=== PATIENT | female | born 1990 | race American Indian/Alaskan Native ===

== ENCOUNTER 2019-09-30 22:48 | Emergency (ER) | payer SELFPAY ==
--- NOTE | 2019-09-30 23:07 | Emergency Department Report ---
ED General Adult HPI - General Chief complaint: Seizure Stated complaint: SEIZURE Time Seen by Provider: 09/30/19 22:57 Source: patient, EMS ( EMS documentation not available at time of chart dictation ), RN notes reviewed, old records reviewed Mode of arrival: Stretcher Limitations: Altered Mental Status, Other (Patient is a poor historian) - History of Present Illness Initial comments: The patient is a 29-year-old female. She is not known to myself previously. During the entire history and physical examination, I am chaperoned by nurse Jean Claude Hedrick Apparently, emergency medical services were contacted because the patient had convulsive activity. As per collateral information relayed to nursing team caring for the patient, patient had been consuming alcohol, marijuana, and possibly tea. The patient does not have any recollection of the event. She complains of nonspecific central chest tightness, present for days, which does not radiate to the back, arms or neck. She denies , oral contraceptive use, and DVT, pulmonary embolism risk factors. She denies physical pain at this time. She is not homicidal or suicidal. She is still somewhat confused, not quite sure where she is. At the moment, the patient is not accompanied by friends or family at this time for additional information or collateral information. Patient therefore not able to describe the qualitative nature of her symptoms, exacerbating or relieving factors. -: This evening Radiation: other Quality: other Consistency: other Improves with: other Worsens with: other Associated Symptoms: other - Related Data Allergies Allergy/AdvReac Type Severity Reaction Status Date / Time cucumber Allergy Unknown Verified 09/30/19 23:24 mushroom Allergy Unknown Verified 09/30/19 23:24 tomato Allergy Unknown Verified 09/30/19 23:24 ED Review of Systems ROS: Stated complaint: SEIZURE Other details as noted in HPI Comment: Unobtainable due to pts medical conditions Constitutional: see HPI Eyes: as per HPI ENT: as per HPI Respiratory: see HPI Cardiovascular: as per HPI Endocrine: see HPI Gastrointestinal: as per HPI Genitourinary: as per HPI Musculoskeletal: as per HPI Skin: as per HPI Neurological: as per HPI, confusion Psychiatric: as per HPI Hematological/Lymphatic: as per HPI ED Past Medical Hx - Past Medical History Previous Medical History?: No - Surgical History Past Surgical History?: No - Social History Smoking Status: Never Smoker ED Physical Exam - General Limitations: Other (Confusion) General appearance: appears intoxicated, anxious, obese - Head Head exam: Present: atraumatic, normocephalic - Eye Eye exam: Present: normal appearance, EOMI, other (Visual acuity intact to finger counting, color perception, reading at a close distance). Absent: nystagmus - ENT ENT exam: Present: normal exam, normal orophraynx, mucous membranes moist, normal external ear exam - Neck Neck exam: Present: normal inspection, full ROM. Absent: tenderness, meningismus - Respiratory Respiratory exam: Present: normal lung sounds bilaterally. Absent: respiratory distress - Cardiovascular Cardiovascular Exam: Present: regular rate, normal rhythm, normal heart sounds. Absent: bradycardia, tachycardia, irregular rhythm, systolic murmur, diastolic murmur, rubs, gallop - GI/Abdominal GI/Abdominal exam: Present: soft, normal bowel sounds. Absent: distended, tenderness, guarding, rebound, rigid, pulsatile mass - Extremities Exam Extremities exam: Present: normal inspection, full ROM, other (2+ pulses noted in the bilateral upper and lower extremities. There is no palpable cord. negative Homans sign. Muscular compartments are soft. The pelvis is stable.). Absent: pedal edema, calf tenderness - Back Exam Back exam: Present: normal inspection, full ROM. Absent: tenderness, CVA tenderness (R), CVA tenderness (L), paraspinal tenderness, vertebral tenderness - Neurological Exam Neurological exam: Present: altered (Patient is awake to name, and follows commands. Does not know where she is.), other (No facial droop. Tongue midline. Extraocular movements intact bilaterally. Facial sensation intact to light touch in V1, V2, V3 distribution bilaterally. 5 and a 5 strength in 4 extremities. Sensation intact to light touch in 4 extremities.) - Psychiatric Psychiatric exam: Present: anxious - Skin Skin exam: Present: warm, dry, intact, normal color. Absent: rash ED Course Vital Signs 09/30/19 09/30/19 09/30/19 22:50 22:52 23:00 Temperature 98 F Pulse Rate 95 H 102 H Respiratory 10 L 15 Rate Blood Pressure 109/64 Blood Pressure 108/71 [left arm] O2 Sat by Pulse 97 99 99 Oximetry 09/30/19 09/30/19 10/01/19 23:05 23:32 00:00 Temperature Pulse Rate 93 H 84 86 Respiratory 19 11 L Rate Blood Pressure 108/71 119/69 Blood Pressure [left arm] O2 Sat by Pulse 99 100 Oximetry 10/01/19 10/01/19 00:11 01:01 Temperature Pulse Rate 81 Respiratory 19 Rate Blood Pressure 119/69 107/58 Blood Pressure [left arm] O2 Sat by Pulse 100 100 Oximetry - Reevaluation(s) Reevaluation #1: 10/01/19 00:42 Patient sleeping comfortably at this time, and in no acute distress. CT scan of the brain, x-ray of the chest is negative for acute disease. Patient will be observed in this department, pending clinical sobriety, or when a sober adult is able to come by and pick the patient up. Reevaluation #2: 10/01/19 01:52 Patient observed for 3 hours without clinical decompensation or recurrent seizure. As she still appears to be somewhat impaired. Nursing team to reach out to the patient's friend, Ms Whipple, to come by and pickler helper patient ED Medical Decision Making - Lab Data Result diagrams: 09/30/19 23:09 09/30/19 23:09 Vital Signs 09/30/19 09/30/19 22:52 23:05 Temperature 98 F Pulse Rate 95 H 93 H Respiratory 10 L Rate Blood Pressure 108/71 [left arm] O2 Sat by Pulse 99 Oximetry Lab Results 09/30/19 09/30/19 09/30/19 Range/Units 23:03 23:09 23:09 WBC 7.3 (4.5-11.0) K/mm3 RBC 3.86 (3.65-5.03) M/mm3 Hgb 10.1 (10.1-14.3) gm/dl Hct 32.7 (30.3-42.9) % MCV 85 (79-97) fl MCH 26 L (28-32) pg MCHC 31 (30-34) % RDW 18.6 H (13.2-15.2) % Plt Count 330 (140-440) K/mm3 POC Glucose (70-105) Magnesium 2.50 H (1.7-2.3) mg/dL Total Creatine Kinase 159 H (30-135) units/L HCG, Quant (0-4) mIU/mL Urine Color Yellow (Yellow) Urine Turbidity Clear (Clear) Urine pH 6.0 (5.0-7.0) Ur Specific [place] 1.010 (1.003-1.030) Urine Protein <15 mg/dl (Negative) mg/dL Urine Glucose (UA) Neg (Negative) mg/dL Urine Ketones Neg (Negative) mg/dL Urine Blood Neg (Negative) Urine Nitrite Neg (Negative) Urine Bilirubin Neg (Negative) Urine Urobilinogen < 2.0 (<2.0) mg/dL Ur Leukocyte Esterase Tr (Negative) Urine WBC (Auto) 3.0 (0.0-6.0) /HPF Urine RBC (Auto) 3.0 (0.0-6.0) /HPF U Epithel Cells (Auto) 3.0 (0-13.0) /HPF Urine Mucus Few /HPF Salicylates (2.8-20.0) mg/dL Acetaminophen (10.0-30.0) ug/mL 09/30/19 09/30/19 09/30/19 Range/Units 23:09 23:09 23:09 WBC (4.5-11.0) K/mm3 RBC (3.65-5.03) M/mm3 Hgb (10.1-14.3) gm/dl Hct (30.3-42.9) % MCV (79-97) fl MCH (28-32) pg MCHC (30-34) % RDW (13.2-15.2) % Plt Count (140-440) K/mm3 POC Glucose (70-105) Magnesium (1.7-2.3) mg/dL Total Creatine Kinase (30-135) units/L HCG, Quant < 2 (0-4) mIU/mL Urine Color (Yellow) Urine Turbidity (Clear) Urine pH (5.0-7.0) Ur Specific [place] (1.003-1.030) Urine Protein (Negative) mg/dL Urine Glucose (UA) (Negative) mg/dL Urine Ketones (Negative) mg/dL Urine Blood (Negative) Urine Nitrite (Negative) Urine Bilirubin (Negative) Urine Urobilinogen (<2.0) mg/dL Ur Leukocyte Esterase (Negative) Urine WBC (Auto) (0.0-6.0) /HPF Urine RBC (Auto) (0.0-6.0) /HPF U Epithel Cells (Auto) (0-13.0) /HPF Urine Mucus /HPF Salicylates < 0.3 L (2.8-20.0) mg/dL Acetaminophen < 5.0 L (10.0-30.0) ug/mL 09/30/19 Range/Units 23:24 WBC (4.5-11.0) K/mm3 RBC (3.65-5.03) M/mm3 Hgb (10.1-14.3) gm/dl Hct (30.3-42.9) % MCV (79-97) fl MCH (28-32) pg MCHC (30-34) % RDW (13.2-15.2) % Plt Count (140-440) K/mm3 POC Glucose 89 (70-105) Magnesium (1.7-2.3) mg/dL Total Creatine Kinase (30-135) units/L HCG, Quant (0-4) mIU/mL Urine Color (Yellow) Urine Turbidity (Clear) Urine pH (5.0-7.0) Ur Specific [place] (1.003-1.030) Urine Protein (Negative) mg/dL Urine Glucose (UA) (Negative) mg/dL Urine Ketones (Negative) mg/dL Urine Blood (Negative) Urine Nitrite (Negative) Urine Bilirubin (Negative) Urine Urobilinogen (<2.0) mg/dL Ur Leukocyte Esterase (Negative) Urine WBC (Auto) (0.0-6.0) /HPF Urine RBC (Auto) (0.0-6.0) /HPF U Epithel Cells (Auto) (0-13.0) /HPF Urine Mucus /HPF Salicylates (2.8-20.0) mg/dL Acetaminophen (10.0-30.0) ug/mL - EKG Data -: EKG Interpreted by Me EKG shows normal: sinus rhythm, axis, ST-T waves Rate: normal - EKG Data When compared to previous EKG there are: previous EKG unavailable 10/01/19 00:00 Sinus rhythm, 90 bpm, normal axis, Q waves noted in 1 and aVL, high left ventricular voltage, QTC 449 ms, AL interval within normal limits. The EKG has nonspecific abnormalities, there is no prior for comparison, it is not a STEMI - Radiology Data Radiology results: pending, report reviewed, image reviewed interpreted by me: Noncontrast CT scan of the brain is negative for acute disease to my interpretation X-ray of the chest appears to be negative for acute disease - Medical Decision Making Differential diagnosis, including but not limited to: Seizure, convulsion secondary to polypharmacy, pseudoseizure, electrolyte derangement, intoxication Assessment and plan: 29-year-old female with report of seizure or convulsive activity, now resolved, who is afebrile, with reassuring vital signs, states that she is not , denies delivery within the past 6 weeks, denies DVT and pulmonary embolism risk factors, low risk by Wells criteria at this time, not tachycardic, tachypneic or hypoxic, perc negative, with a nonfocal motor exam, likely experiencing a convulsive event probably secondary to recreational drug consumption. We will hold the patient pending clinical sobriety, or until such time as a sober adult can pick her up. So far, screening laboratory studies unremarkable for emergent toxicologic insult, CT scan of the brain to my interpretation appears to be negative. Critical care attestation.: If time is entered above; I have spent that time in minutes in the direct care of this critically ill patient, excluding procedure time. ED Disposition Clinical Impression: History of convulsions, History of chest pain Alcohol intoxication Qualifiers: Complication of substance-induced condition: with unspecified complication Qualified Code(s): F10.929 - Alcohol use, unspecified with intoxication, unspecified Disposition: DC-01 TO HOME OR SELFCARE Is pt being admited?: No Does the pt Need Aspirin: No Condition: Good Additional Instructions: We recommend that the patient not drive or operate motor vehicles for the next 6 months. Recommend that the patient not consume alcohol, recreational drugs, or marijuana. Participating in consumption of the aforementioned may result in breakthrough seizure and convulsion, which in turn may cause , disability, paralysis, or permanent loss of quality of life. Recommend that patient follow-up with her primary care doctor or neurologist within the next 5 to 7 days. Please return to the emergency room right away with new, worsened or different symptoms, or symptoms not present on the initial emergency room evaluation. Referrals: RACHEL RUIZ MD [Staff Physician] - 3-5 Days RONDA MARCH MD [Staff Physician] - 3-5 Days PARIS WELSH MD [Staff Physician] - 3-5 Days CAMDEN CALIXTO MD [Referring] - 3-5 Days
[2019-09-30 23:29] LABS: Hematocrit 32.7 % (30.3-42.9); Hemoglobin 10.1 gm/dl (10.1-14.3); Mean Corpuscular HGB Conc 31 % (30-34); Mean Corpuscular Volume 85 fl (79-97); Platelet Count 330 K/mm3 (140-440); Red Blood Count 3.86 M/mm3 (3.65-5.03); Red Cell Distribution Width 18.6 % (13.2-15.2)
[2019-09-30 23:32] LABS: Bilirubin,Urine NEG (Negative); Blood,Urine NEG (Negative); Color,Urine Yellow (Yellow); Mucus,Urine FEW /HPF; Protein,Urine <15 mg/dL mg/dL (Negative); Urobilinogen,Urine < 2.0 mg/dL (<2.0)
[2019-10-01 00:08] LABS: Alanine Aminotransferase 12 units/L (7-56); Albumin 4.8 g/dL (3.9-5); BUN/Creatinine Ratio 11; Blood Urea Nitrogen 9 mg/dL (7-17); Calcium 9.1 mg/dL (8.4-10.2); Hemolysis Index 6
[2019-10-01 00:10] LABS: Amphetamine Screen,Urine PRESUMPTIVE NEGATIVE; Benzodiazepines Screen,Urine PRESUMPTIVE NEGATIVE; Cannabinoid Screen,Urine PRESUMPTIVE NEGATIVE; Cocaine Screen,Urine PRESUMPTIVE NEGATIVE; Methadone Screen,Urine PRESUMPTIVE NEGATIVE; Opiate Screen,Urine PRESUMPTIVE NEGATIVE
--- NOTE | 2019-10-01 00:32 | Cat Scan Report ---
CT BRAIN: 09/30/2019 INDICATION / CLINICAL INFORMATION: Seizure. COMPARISON: None available. FINDINGS: BRAIN/INTRACRANIAL STRUCTURES: Unenhanced CT images of the brain demonstrate no evidence of acute int racranial abnormality. Ventricles and sulci are normal in size and shape for a patient of this age. Incidental note is made of a small cavum septum lucidum, a normal variant. There is no CT evidence of acute ischemic injury, hemorrhage, or mass. There are no abnormal extra-ax ial fluid collections. EXTRACRANIAL STRUCTURES: Unremarkable. IMPRESSION: No acute abnormality. All CT scans at this location are performed using dose reduction to ALARA by means of automated expos ure control. Signer Name: Elian Brush MD Signed: 10/01/2019 12:28 AM Workstation Name: [id number]
--- NOTE | 2019-10-01 00:35 | XRay Report ---
CHEST 1 VIEW 0004 INDICATION / CLINICAL INFORMATION: sz hx of cp. COMPARISON: None available. FINDINGS: SUPPORT DEVICES: None HEART / MEDIASTINUM: No significant abnormality. LUNGS / PLEURA: No significant pulmonary or pleural abnormality. No pneumothorax. ADDITIONAL FINDINGS: No significant additional findings. IMPRESSION: No significant acute abnormality Signer Name: Jose Maldonado MD Signed: 10/01/2019 12:30 AM Workstation Name: [id number]
[2019-10-01 03:19] VITALS: BP 102/62
== END 2019-10-01 02:30 | disposition home or self-care (01) ==
LOC: ED 22:48
DX: R56.9 Unspecified convulsions (principal); R07.89 Other chest pain; F10.929 Alcohol use, unspecified with intoxication, unspecified; Z91.018 Allergy to other foods
CPT/HCPCS: 36415; 70450; 71045; 80053; 80307; 80320; 81001; 82550; 82962; 83735; 84702; 85027; 93005; G0480